=== PATIENT | male | born 1980 | race Caucasian/White ===

== ENCOUNTER 2017-09-12 16:28 | Emergency (ER) | payer SELFPAY ==
[~2017-09-12] VITALS: Ht 172.7 cm; Wt 91.9 kg
[2017-09-12 17:20] LABS: HEMATOCRIT 44.4 % (38.0-50.0); HEMOGLOBIN 15.2 G/DL (12.5-16.6); MCHC 34.2 G/DL (30.0-36.0); MCV 84.6 FL (86-99); PLATELET COUNT 262 K/uL (156-360); RBC DIS.WIDTH-CV 12.1 % (11.8-14.6); RBC DIS.WIDTH-SD 37.1 % (39-53); RED BLOOD COUNT 5.25 M/uL (4.00-5.50); WHITE BLOOD COUNT 9.5 K/uL (4.1-10.2)
[2017-09-12 17:35] LABS: ALBUMIN 4.7 g/dL (3.2-4.8); CHLORIDE 103 mEq/L (99-109); POTASSIUM 3.8 mEq/L (3.7-5.4); SODIUM 139 mEq/L (136-147)
[2017-09-12 17:37] LABS: GLUCOSE 96 mg/dL (70-99); TOTAL PROTEIN 8.2 g/dL (6.4-8.3)
[2017-09-12 17:41] LABS: ALKALINE PHOSPHATASE 59 IU/L (3-129); GFR ESTIMATE (CALCULATED) > 59 mL/min/ (58.99-99999)
[2017-09-12 17:42] LABS: UREA NITROGEN (BUN) 11 mg/dL (9-23)
[2017-09-12 17:43] LABS: AST (GOT) 14 IU/L (2-34)
[2017-09-12 17:44] LABS: ALT (GPT) 18 IU/L (3-49); LIPASE 23 U/L (1.0-51.0)
[2017-09-12 18:09] LABS: APPEARANCE CLEAR ((CLEAR)); BILIRUBIN NEGATIVE; BLOOD NEGATIVE; COLOR YELLOW ((YELLOW)); GLUCOSE (STRIP) NEGATIVE; KETONES 5; LEUKOCYTES NEGATIVE; NITRITE NEGATIVE; PROTEIN (STRIP) NEGATIVE; SPECIFIC GRAVITY 1.023 (1.000-1.030); UCUL ADDED? NO; UROBILINOGEN 0.2 MG/DL (0.2-1.0)
[2017-09-12 18:38] VITALS: BP 147/96
== END 2017-09-12 18:51 | disposition home or self-care (01) ==
LOC: EME 16:28
PROVIDERS: Physician Assistant
DX: R10.11 Right upper quadrant pain (principal); K76.9 Liver disease, unspecified
CPT/HCPCS: 76705; 80053; 81003; 83690; 85027; 99281; 99283